=== PATIENT | male | born 1990 ===

== ENCOUNTER 2016-08-02 08:43 | Day surgery (SDC) | payer OTHER ==
--- NOTE | 2016-07-26 07:33 | HP ---
PREOPERATIVE HISTORY AND PHYSICAL: DATE OF SURGERY/ADMISSION: 08/02/16 [facility] ATTENDING SURGEON: Astrid Orellana MD PROCEDURE: Right wrist carpal tunnel release, ulnar nerve decompression at the wrist. CHIEF COMPLAINT: Numbness and tingling, right hand. HISTORY OF PRESENT ILLNESS: This is a 25-year-old inmate who complains of numbness and tingling in his bilateral hands, worse on the right than on the left. This has been on going for the past couple of years and progressively worsening. He does not recall any specific injury. He has increased in symptoms when he writes and gets symptoms at night that awaken him. He does not seem to get any relief with anything that he has tried in the past. He had a nerve conduction study recently, which showed bilateral median and ulnar nerve compression at the wrist. The patient in addition to numbness and tingling complains of weakness in the hand which makes it difficult for him to do the things that he would like to do. He is interested in pursuing surgical intervention at this time and would like to first address his right hand with a carpal tunnel release and ulnar nerve decompression at the wrist. PAST MEDICAL HISTORY: History of seizures of unclear etiology, the last one was in 2008. The patient has had no problems since, does not take any medications for this. PAST SURGICAL HISTORY: None. MEDICATIONS: None. ALLERGIES: No known drug allergies. FAMILY MEDICAL HISTORY: Noncontributory SOCIAL HISTORY: The patient is incarcerated. He is a smoker, approximately half a pack per day. He denies recreational drug use. He denies alcohol use. REVIEW OF SYSTEMS: General: Negative for fevers, chills, or night sweats. No known anesthesia problems. HEENT: Negative for headache, lightheadedness or syncopal episodes. Integumentary: Negative for abrasions, lesions, or open wounds. Cardiothoracic: Negative for chest pain, palpitation or edema. Negative for hypertension. Pulmonary: Negative for shortness of breath with exertion, chronic cough, COPD. GI: Negative for nausea, vomiting, diarrhea, constipation, or GERD. : Negative for nocturia, urinary frequency, urgency, history of UTIs or kidney problems. Musculoskeletal: Positive for current complaint. Negative for chronic or intermittent back pain or history of fractures. Neurological: Positive for history of seizures. Negative for paresthesias, numbness, history of stroke, or epilepsy. Endocrine: Negative for diabetes or thyroid issues. Hematologic: Negative for easy bruising, anemia , excessive bleeding or history of DVT. Infectious Disease: Negative for history of MRSA, hepatitis C, or HIV. PHYSICAL EXAMINATION GENERAL: Well-developed, well-nourished 25-year-old male, in no acute distress. VITAL SIGNS: Height 5 feet 8 inches, weight 187 pounds, pulse rate 68, blood pressure 113/67. HEENT: Normocephalic, atraumatic. Pupils are equal, round, and reactive to light and accommodation. Extraocular movements are intact. NECK: Supple. No palpable lymph nodes. Throat is clear. PULMONARY: Lungs are clear to auscultation bilaterally. No wheezes, rales, or rhonchi. CARDIOTHORACIC: Regular rate and rhythm. S1, S2. No murmurs, rubs, or gallops. No edema. ABDOMEN: Positive bowel sounds, soft, nontender. NEUROLOGIC: Alert and oriented x3. Cranial nerves II through XII are intact. Sensation is intact to light touch. MUSCULOSKELETAL: On exam of his bilateral hands, there is mild amount of thenar waisting on the right and some first dorsal interosseous wasting on the right as well. Negative Tinel sign of the ulnar nerve at the elbow. Questionably positive Tinel sign at the median nerve at the wrist, weakness with finger abduction and thumb abduction. He has full range of motion in his fingers with flexion and extension and a slight decrease in sensation in his fingers more significant on the right than on the left. Nerve conduction EMG study showed evidence of bilateral carpal tunnel syndrome and ulnar nerve compression at the wrist. 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 PLAN: The patient is scheduled to undergo a right carpal tunnel release and ulnar nerve decompression at the wrist with Dr. Orellana. He will return to the office in 10 to 14 days postop for followup and suture removal. Postoperative pain medications will be managed by the patient's facility doctors. LACIE CALVERT [id number]/[facility] #: [id number] K[facility] HEALTHPatricia
[~2016-08-02 08:43] MED LIST: Buffered Lidocaine 1% SYR 3ML* 3 ML/SYR SYRINGE INTRADERM ONE; Lidocaine 1% INJ* 10 MG/ML 30 ML SDV ONE
[2016-08-02] MEDS ORDERED: Midazolam* 1 MG/ML 2 ML VIAL (2 MG) ONE (09:40)
[2016-08-02] MEDS ORDERED: Propofol* 10 MG/ML 20 ML BTL IV PUSH ONE (09:41)
[2016-08-02] MEDS ORDERED: fentaNYL* 50 MCG/ML 2 ML VIAL (100 MCG VIAL) ONE (09:41)
[2016-08-02 10:55] VITALS: BP 109/70
--- NOTE | 2016-08-03 01:24 | OP ---
DATE OF OPERATION: 08/02/16 [facility] DATE OF : 89 SURGEON: Dr. Orellana. OFFSET PLATE MAKER: LACIE Chinchilla ANESTHESIOLOGIST: Jeff Wolf MD ANESTHESIA: Local, MAC. PRE-OP DIAGNOSIS: Median and ulnar nerve compression of the right wrist. POST-OP DIAGNOSIS: Median and ulnar nerve compression of the right wrist. OPERATIVE PROCEDURE: Right carpal tunnel release and ulnar nerve decompression of the wrist. ESTIMATED BLOOD LOSS: Zero. TOURNIQUET TIME: About 20 minutes. INDICATION FOR PROCEDURE: Jimmy is a 25-year-old inmate who has numbness and tingling in his right hand, all fingers. Nerve conduction study shows median and ulnar nerve compression of the right wrist. He presents for decompression of both nerves of the wrist. DESCRIPTION OF PROCEDURE: The patient was brought to the operating room, was given a sedation anesthetic, and a local infiltration with 10 cc of 1% plain lidocaine in the palm and distal forearm of his right hand. The skin of his right upper extremity was prepped and draped in the usual sterile fashion. The hand and forearm were exsanguinated and the tourniquet elevated to 250 mmHg. A longitudinal incision was made in the palm with Duane incisions across the wrist crease on the ulnar aspect of the wrist. We dissected sharply through the subcutaneous tissue down to the transverse carpal ligament. The ligament was divided sharply with the knife and then more proximally with the scissors. The nerve was dissected free from the surrounding tissue and there was an area of moderate compression in the mid portion of the ligament. The ulnar nerve was then located proximal to the wrist just radial to the flexor carpi ulnaris tendon and was carefully traced all the way through Guyon's canal, completely releasing the nerve. No mass was found and then the wound was irrigated and the skin edges reapproximated with 4-0 nylon suture. The wound was dressed with Xeroform, 4x4, Webril, and an Jl wrap. The patient tolerated the procedure well, was brought to the recovery room in good condition. [id number]/[facility] #: [id number] MTDD
== END 2016-08-02 11:18 ==
LOC: OREAST 08:43
PROVIDERS: ATTEND Orthopaedic Surgery
DX: G56.01 Carpal tunnel syndrome, right upper limb (principal); F17.210 Nicotine dependence, cigarettes, uncomplicated
CPT/HCPCS: J2250; J2704; J3010